=== PATIENT | male | born 1970 | race Caucasian/White ===

== ENCOUNTER 2018-05-22 14:31 | Emergency (ER) | payer OTHER ==
[~2018-05-22] VITALS: Ht 188 cm; Wt 106.6 kg
[2018-05-22 14:48] VITALS: BP 163/94
--- NOTE | 2018-05-22 14:56 | ER.PDOC ---
General Chief Complaint: General Complaint Stated Complaint: HIGH BLOOD PRESSURE Time seen by MD: 14:52 Source: patient Exam Limitations: no limitations History of Present Illness Initial Comments c/o rt earache today,noted bp up, Timing/Duration: gradual Severity: moderate Location of Pain: (R) Ear Associated Symptoms: dull earache, ringing in ears, headache Allergies: Coded Allergies: cephalexin (Verified Allergy, Unknown, RASH, 11/02/15) Home Meds No Active Prescriptions or Reported Meds Past Medical History Medical History: no pertinent history Surgical History: no surgical history, knee Family History Significant Family History: no pertinent family hx Social History Smoking: cigarettes, less than 1 pack/day Alcohol Use: rarely Drug Use: none Constitutional: no symptoms reported Eyes: see HPI Ears: see HPI Nose: no symptoms reported Mouth: no symptoms reported Respiratory: no symptoms reported Cardiovascular: no symptoms reported Musculoskeletal: no symptoms reported Neurological: no symptoms reported All Other Systems: Reviewed and Negative Physical Exam General Appearance: alert, no distress Ears: external. canal nml TM's: nml Mouth/Throat: lips/gums nml Nose: nml inspection Eyes: eyes nml inspection Resp/CVS: no resp distress Abdomen: non-tender Skin Exam: Normal Color NEURO/PSYCH: oriented X3, mood/effect nml Departure Time of Disposition: 14:53 Disposition: 01 HOME, SELF-CARE Impression: Primary Impression: Hypertension Condition: Stable Referrals: PCP,UNKNOWN (PCP) PRIMARY CARE PROVIDER Scripts No Active Prescriptions or Reported Meds Duration or Time Spent with Pa: WENDY VELOZ MD May 22, 2018 14:56
[2018-05-22 15:00] VITALS: BP 141/80
[2018-05-22 15:04] VITALS: BP 141/80
== END 2018-05-22 15:00 | disposition home or self-care (01) ==
LOC: ER 14:31
DX: I10 Essential (primary) hypertension (principal); H92.01 Otalgia, right ear; H93.13 Tinnitus, bilateral; F17.210 Nicotine dependence, cigarettes, uncomplicated; Z88.1 Allergy status to other antibiotic agents
CPT/HCPCS: 99283

== ENCOUNTER 2018-11-17 09:19 | Emergency (ER) | payer OTHER ==
[~2018-11-17] VITALS: Ht 188 cm; Wt 89.8 kg
--- NOTE | 2018-11-17 09:25 | NUR ---
ARRIVAL PT ARRIVED AMBULATORY TO ER 4 C/O BACK PAIN X 4 DAYS. PT STATES BEGAN HAVING DIFFICULTY URINARING YESTERDAY, DOES NOT FEEL ABLE TO GIVE URINE SAMPLE AT THIS TIME. EDP NOTIFIED OF PT ARRIVAL.
[2018-11-17 09:32] VITALS: BP 138/70
[2018-11-17] MEDS ORDERED: NS 1000ML 1,000 ML ONE (09:40)
[2018-11-17] MEDS ORDERED: NS 1000ML 1,000 ML IV STA (09:40)
[2018-11-17] MEDS ORDERED: ZOFRAN IV STA (09:40)
[2018-11-17] MEDS ORDERED: TORADOL ONE (09:41)
[2018-11-17] MEDS ORDERED: ZOFRAN ONE (09:41)
--- NOTE | 2018-11-17 09:43 | NUR ---
IV ATTEMPT IV ATTEMPT X2 UNSUCCESSFUL. PT TENSE AND ANXIOUS DURING IV ATTEMPTS.
--- NOTE | 2018-11-17 09:53 | ER.PDOC ---
General Chief Complaint: Male Stated Complaint: LOWER BACK PAIN Time seen by MD: 09:42 Source: patient Exam Limitations: no limitations History of Present Illness Initial Comments Lower back pain for 5 days, no fall or injury. Severity/Quality: moderate Method of Injury: unknown Associated Symptoms: other (nausea/vomiting) Allergies: Coded Allergies: cephalexin (Verified Allergy, Unknown, RASH, 11/02/15) Home Meds No Active Prescriptions or Reported Meds Past Medical History Medical History: no pertinent history Surgical History: knee Social History Smoking: greater than 1 pack/day Alcohol Use: none Drug Use: none Review of Systems Constitutional: no symptoms reported EENTM: no symptoms reported Respiratory: no symptoms reported Cardiovascular: no symptoms reported Gastrointestinal: no symptoms reported Musculoskeletal: see HPI All Other Systems: Reviewed and Negative Physical Exam General Appearance: No Apparent Distress, WD/WN HEENT: PERRL/EOMI, Normal ENT Inspection, TMs Normal, Pharynx Normal Neck: Non-Tender, Normal Alignment Cardiovascular/Respiratory: Regular Rate, Rhythm, No M/R/G, Normal Peripheral Pulses, No JVD, Normal Breath Sounds, No Respiratory Distress Gastrointestinal: Normal Bowel Sounds, No Organomegaly, No Pulsatile Mass, Non Tender, Soft Back: Other (tenderness across lower back) Extremities: No Evidence of Injury, Normal Range of Motion, Non-Tender, No Pedal Edema, Pelvis Stable Neuro/Psych: Alert, blocker metal base nml/symmetrical, mood/effect nml, No Motor/Sensory Deficits, Relexes nml Skin: Normal Color, Warm/Dry Results/Orders Results/Orders Orders - PANCHO WINSLOW MD Cbc With Auto Diff (11/17/18 09:40) Comprehensive Metabolic Panel (11/17/18 09:40) PT (11/17/18 09:40) Partial Thromboplastin Time. (11/17/18 09:40) Ct Abd/Pelvis Wo Iv Contrast (11/17/18 09:40) 0.9 % Sodium Chloride (Ns 1000ml) (11/17/18 09:40) Ondansetron Hcl (Zofran) (11/17/18 09:40) 0.9 % Sodium Chloride (Ns 1000ml) (11/17/18 09:40) Ondansetron Hcl (Zofran) (11/17/18 09:41) Ketorolac Tromethamine (Toradol) (11/17/18 09:41) Ketorolac Tromethamine (Toradol) (11/17/18 10:21) Vital Signs Date Time Temp Pulse Resp B/P (MAP) Pulse Ox O2 Delivery O2 Flow Rate FiO2 11/17/18 09:32 97.8 80 17 138/70 (92) 100 Room Air 97.8 11/17/18 09:25 97.8 80 17 100 Room Air 97.8 11/17/18 09:25 97.8 80 17 97.8 Administered Medications Medications (Trade) Dose Ordered Sig/Joanie Route PRN Reason Start Time Stop Time Status Last Admin Dose Admin Ketorolac Tromethamine (Toradol) 30 mg STAT STAT IV 11/17/18 10:21 11/17/18 10:22 DC 11/17/18 10:22 30 MG Ondansetron HCl (Zofran) 4 mg STAT STAT IV 11/17/18 09:40 11/17/18 09:42 DC 11/17/18 10:16 4 MG Sodium Chloride 1,000 ml @ 1,200 mls/hr Q50M STAT IV 11/17/18 09:40 11/17/18 10:29 DC 11/17/18 10:16 1,200 MLS/HR Laboratory Tests Test 11/17/18 10:00 White Blood Count 6.0 10^3/uL (4.5-11.0) Red Blood Count 5.03 10^6/uL (4.50-5.90) Hemoglobin 16.5 g/dL (13.9-16.3) H Hematocrit 47.2 % (37.0-53.0) Mean Corpuscular Volume 93.8 fL (78-100) Mean Corpuscular Hemoglobin 32.8 pg (26-34) Mean Corpuscular Hemoglobin Concent 35.0 g/dL (33-37) Red Cell Distribution Width 12.7 % (11.5-14.5) Platelet Count 203 10^3/uL (150-400) Mean Platelet Volume 9.8 fL (7.8-11.0) Neutrophils (%) (Auto) 63.5 % (41.0-85.0) Lymphocytes (%) (Auto) 22.9 % (24.0-44.0) L Monocytes (%) (Auto) 9.5 % (5.0-12.0) Neutrophils # (Auto) 3.8 10^3/uL (1.8-7.7) Lymphocytes # (Auto) 1.4 10^3/uL (1.0-4.8) Monocytes # (Auto) 0.6 10^3/uL (0.3-0.8) Absolute Immature Granulocyte (auto 0.01 10^3 u/L (0-2) Immature Granulocytes % 0.20 % (0.00-0.50) Eosinophils % 3.7 % (0.0-5.0) Basophils % 0.2 % (0.0-0.2) Basophils # 0.0 10^3/uL (0.0-0.1) Eosinophil Count 0.2 10^3/uL (0.0-0.2) Prothrombin Time 10.2 SEC (9.8-11.9) Prothrombin Time INR (Non-Therap) 1.0 PTT 25.2 SEC (24.67-30.72) Sodium Level 141 mmol/L (132-145) Potassium Level 4.5 mmol/L (3.6-5.2) Chloride Level 107.0 mmol/L (96-109) Carbon Dioxide Level 25.8 mmol/L (20.0-32) Anion Gap 12.7 Blood Urea Nitrogen 10 mg/dL (7-18) Creatinine 0.98 mg/dL (0.59-1.40) Estimated GFR () 99.6 (>/=60) BUN/Creatinine Ratio 10.0 Glucose Level 93 mg/dL (70-110) Calcium Level 9.3 mg/dL (8.4-10.5) Total Bilirubin 0.3 mg/dL (0.2-1.0) Aspartate Amino Transferase (AST) 19 U/L (0-35) Alanine Aminotransferase (ALT) 38 U/L (12-78) Alkaline Phosphatase 84 U/L (50-136) Total Protein 6.5 g/dL (6.4-8.2) Albumin 3.3 g/dL (3.4-5.0) L Globulin 3.[address] abdomen/pelvis: No acute abnormalities are seen in the abdomen and pelvis. No renal or ureteral calculi are demonstrated. Course Duration or Total Time Spent w: 15 Vitals & review Data Vital Sign - Last 24 Hours 11/17/18 11/17/18 11/17/18 09:25 09:25 09:32 Temp 97.8 97.8 97.8 97.8 97.8 97.8 Pulse 80 80 80 Resp 17 17 17 B/P (MAP) 138/70 (92) Pulse Ox 100 100 O2 Delivery Room Air Room Air Laboratory Tests Test 11/17/18 10:00 White Blood Count 6.0 10^3/uL Red Blood Count 5.03 10^6/uL Hemoglobin 16.5 g/dL Hematocrit 47.2 % Mean Corpuscular Volume 93.8 fL Mean Corpuscular Hemoglobin 32.8 pg Mean Corpuscular Hemoglobin Concent 35.0 g/dL Red Cell Distribution Width 12.7 % Platelet Count 203 10^3/uL Mean Platelet Volume 9.8 fL Neutrophils (%) (Auto) 63.5 % Lymphocytes (%) (Auto) 22.9 % Monocytes (%) (Auto) 9.5 % Neutrophils # (Auto) 3.8 10^3/uL Lymphocytes # (Auto) 1.4 10^3/uL Monocytes # (Auto) 0.6 10^3/uL Absolute Immature Granulocyte (auto 0.01 10^3 u/L Immature Granulocytes % 0.20 % Eosinophils % 3.7 % Basophils % 0.2 % Basophils # 0.0 10^3/uL Eosinophil Count 0.2 10^3/uL Prothrombin Time 10.2 SEC Prothrombin Time INR (Non-Therap) 1.0 Activated Partial Thromboplast Time 25.2 SEC Sodium Level 141 mmol/L Potassium Level 4.5 mmol/L Chloride Level 107.0 mmol/L Carbon Dioxide Level 25.8 mmol/L Anion Gap 12.7 Blood Urea Nitrogen 10 mg/dL Creatinine 0.98 mg/dL Estimated GFR () 99.6 BUN/Creatinine Ratio 10.0 Glucose Level 93 mg/dL Calcium Level 9.3 mg/dL Total Bilirubin 0.3 mg/dL Aspartate Amino Transf (AST/SGOT) 19 U/L Alanine Aminotransferase (ALT/SGPT) 38 U/L Alkaline Phosphatase 84 U/L Total Protein 6.5 g/dL Albumin 3.3 g/dL Globulin 3.2 Sepsis Infection Criteria Pres: None O2 Sat by Pulse Oximetry: 100 Departure Time of Disposition: 12:21 Disposition: 01 HOME, SELF-CARE Impression: Primary Impression: Low back pain Condition: Stable Referrals: PCP,UNKNOWN (PCP) PRIMARY CARE PROVIDER Additional Instructions: Tramadol Flexeril Ibuprofen F/U with PCP in 3-4 days Scripts No Active Prescriptions or Reported Meds Duration or Time Spent with Pa: 60 mins Problem Qualifiers Primary Impression: Low back pain Chronicity: acute Back pain laterality: unspecified Sciatica presence: without sciatica Qualified Codes: M54.5 - Low back pain PANCHO WINSLOW MD Nov 17, 2018 09:53
[2018-11-17 10:07] LABS: BASOPHIL % 0.2 % (0.0-0.2); EOSINOPHIL # 0.2 10^3/uL (0.0-0.2); EOSINOPHIL % 3.7 % (0.0-5.0); HEMOGLOBIN 16.5 g/dL (13.9-16.3); LYMPHOCYTES # 1.4 10^3/uL (1.0-4.8); LYMPHOCYTES % 22.9 % (24.0-44.0); MEAN CELL HGB 32.8 pg (26-34); MEAN CORP VOLUME 93.8 fL (78-100); MEAN PLATELET VOLUME 9.8 fL (7.8-11.0); MONOCYTES # 0.6 10^3/uL (0.3-0.8); MONOCYTES % 9.5 % (5.0-12.0); NEUTROPHIL # 3.8 10^3/uL (1.8-7.7); NEUTROPHILS % 63.5 % (41.0-85.0); RED CELL DISTRIBUTION WIDTH 12.7 % (11.5-14.5)
--- NOTE | 2018-11-17 10:10 | NUR ---
CT PT TO CT VIA STRETCHER.
[2018-11-17] MEDS ORDERED: TORADOL IV STA (10:21)
[2018-11-17 10:24] LABS: CALCIUM 9.3 mg/dL (8.4-10.5); CARBON DIOXIDE 25.8 mmol/L (20.0-32)
--- NOTE | 2018-11-17 10:26 | DIREP ---
PROCEDURE:CT ABDOMEN/PELVIS W/O CONTRAST COMPARISON:[facility], CT, CT ABD/PELVIS W/ CONTRAST, 11/02/2015, 07:53 PM. INDICATIONS:Left lower back/flank pain TECHNIQUE:Axial images were created through the abdomen and pelvis without intravenous contrast material. No oral contrast was administered. Sagittal and coronal reconstructions were performed from source images. FINDINGS: LUNG BASES:Normal. No visible pulmonary or pleural disease. LIVER:Normal. No significant liver lesions are identified. BILIARY:Normal. No visible dilatation or calcification. PANCREAS:Normal. No lesion, fluid collection, ductal dilatation, or atrophy. SPLEEN:Normal. No enlargement or focal lesion. ADRENALS:Normal. No mass or enlargement. URINARY TRACT:Normal. No focal lesions or hydronephrosis. No renal or ureteral calculi are seen. AORTA/VASCULAR:Normal. No aneurysm. RETROPERITONEUM:Normal. No mass or adenopathy. BOWEL/MESENTERY:Normal. There is no intestinal obstruction, free fluid, free air or mesenteric inflammatory changes. The appendix is normal. ABDOMINAL WALL:Normal. No mass or hernia. PELVIC ORGANS:Normal. No visible mass. Pelvic organs appropriate for patient age. BONES:Mild degenerative changes are seen in the lumbar spine. OTHER:Negative. CONCLUSION:No acute abnormalities are seen in the abdomen and pelvis. No renal or ureteral calculi are demonstrated. Dictated by: Doyle Aceves M.D. on 11/17/2018 at 10:21 AM
[2018-11-17 12:51] VITALS: BP 138/70
== END 2018-11-17 12:35 | disposition home or self-care (01) ==
LOC: ER 09:19
DX: M54.5 Low back pain (principal); R11.2 Nausea with vomiting, unspecified; F17.210 Nicotine dependence, cigarettes, uncomplicated; Z79.899 Other long term (current) drug therapy; Z88.1 Allergy status to other antibiotic agents
CPT/HCPCS: 36415; 74176; 80053; 85025; 85610; 85730; 96361; 96374; 96375; 99285; J1885; J2405; J7030